=== PATIENT | male | born 1985 | race Caucasian/White ===

== ENCOUNTER → 2025-05-25 | Outpatient (CLI) | payer OTHER ==
--- NOTE | 2025-05-26 09:54 | HMCIMG ---
EXAM: CT Cardiac calcium scoring. CLINICAL HISTORY: Screening. TECHNIQUE: Thin collimated axial CT cardiac images were obtained. A CT scan is done according to ALARA (As Low As Reasonably Achievable). CONTRAST: None. COMPARISON: None provided. FINDINGS: Calcium Score: VESSEL Number of lesions Volume mm3 Equi. Mass/mg Calcium score LM 1 0.2 - 0.6 LAD 1 6.9 - 11.0 LCX 0 0.0 - 0.0 RCA 0 0.0 - 0.0 Total 2 7.2 - 11.6 IMPRESSION: The total calcium score is 116. 75th percentile. /[place]
== END | disposition home or self-care (01) ==
LOC: RAH 13:01
PROVIDERS: ATTEND Internal Medicine Critical Care Medicine
DX: Z13.6 Encounter for screening for cardiovascular disorders (principal)
CPT/HCPCS: 75571